=== PATIENT | female | born 1960 | race African-American/Black ===

== ENCOUNTER 2017-02-08 08:08 | Emergency (ER) | payer MEDICARE ==
[~2017-02-08] VITALS: Ht 175.3 cm; Wt 105.0 kg
[2017-02-08 08:10] VITALS: BP 199/92; PULSE 68; RESP 20; TEMP 98; O2SAT 97
--- NOTE | 2017-02-08 08:42 | PD ---
HPI Chief Complaint: Medical Clearance Time Seen by Provider: 08:18 Travel History International Travel<30 days: No Contact w/Intl Traveler<30days: No Traveled to known affect area: No History of Present Illness HPI This is a 56-year-old female with history of renal failure, dialysis dependent, who presents here from [facility] for blood work. The patient was scheduled to have dialysis at the [facility] however it appears that her hepatitis antigen was not sent. According to the manager distribution center at [facility], she needs a negative hepatitis be antigen that is performed within 30 days of her dialysis. I discussed with the manager distribution center, Flavio, who stated that if we were able to obtain this surface antigen result, they could dialyze her today. They initially told her she would need to be dialyzed here as he did not realize it was a turnaround test. Patient denies any headache, shortness of breath, dizziness. PFSH Social History Tobacco Use: No Allergies-Medications (Allergen,Severity, Reaction): Coded Allergies: No Known Allergies (Unverified , 02/08/17) Reported Meds & Prescriptions Reported Meds & Active Scripts Active Reported Lantus Inj (Insulin Glargine) 1,000 Unit/10 Ml Vial 1 Units SQ HS Novolog Inj (Insulin Aspart) 1,000 Unit/10 Ml Vial 0 SQ DIRECTED Sliding Scale as directed. Renvela (Sevelamer Carbonate) 800 Mg Tab 800 Mg PO TID Metoprolol Tartrate 25 Mg Tab 25 Mg PO DAILY Aspirin Low Dose (Aspirin) 81 Mg Chew 81 Mg CHEW DAILY Valsartan 160 Mg Tab 160 Mg PO BID Atorvastatin (Atorvastatin Calcium) 40 Mg Tab 40 Mg PO HS Sensipar (Cinacalcet) 90 Mg Tab 90 Mg PO DAILY Clonidine (Clonidine HCl) 0.3 Mg Tab 0.3 Mg PO TID Diltiazem (Diltiazem HCl) 120 Mg Tab 240 Mg PO DAILY Hydralazine HCl 25 Mg Tablet 50 Mg PO TID Lyrica (Pregabalin) 75 Mg Cap 75 Mg PO BID Review of Systems Except as stated in HPI: all other systems reviewed are Neg General / Constitutional: No: Fever, Chills HENT: No: Headaches, Lightheadedness Cardiovascular: No: Chest Pain or Discomfort, Palpitations Respiratory: No: Cough, Shortness of Breath Gastrointestinal: No: Nausea, Vomiting Musculoskeletal: No: Weakness, Pain Neurologic: No: Weakness, Dizziness, Headache Physical Exam Narrative GENERAL: Well-nourished, well-developed patient, in no acute respiratory distress. SKIN: Focused skin assessment warm/dry. The patient has a AV fistula in the right antecubital that has a palpable thrill. HEAD: Normocephalic/atraumatic. EYES: No scleral icterus. No injection or drainage. NECK: Supple, trachea midline. CARDIOVASCULAR: Regular rate and rhythm without murmurs, gallops, or rubs. RESPIRATORY: Breath sounds equal bilaterally. No accessory muscle use. GASTROINTESTINAL: Abdomen soft, non-tender, nondistended. MUSCULOSKELETAL: No cyanosis, or edema. NEUROLOGICAL: Awake and alert. Cranial nerves II through XII intact. Motor grossly within normal limits. Five out of 5 muscle strength in all muscle groups. Normal speech. Data Data Last Documented VS Vital Signs Date Time Temp Pulse Resp B/P Pulse Ox O2 Delivery O2 Flow Rate FiO2 02/08/17 08:40 72 18 02/08/17 08:10 98.0 199/92 97 Room Air Orders Hepatitis B Surface Ag (02/08/17 08:32) Diet Regular Basic (02/08/17 Lunch) Basic Metabolic Panel (Bmp) (02/08/17 10:51) Labs Laboratory Tests Test 02/08/17 09:10 Sodium Level 136 MEQ/L Potassium Level 4.0 MEQ/L Chloride Level 101 MEQ/L Carbon Dioxide Level 25.5 MEQ/L Anion Gap 10 MEQ/L Blood Urea Nitrogen 44 MG/DL Creatinine 7.91 MG/DL Estimat Glomerular Filtration 6 ML/MIN Rate Random Glucose 229 MG/DL Calcium Level 8.6 MG/DL Hepatitis B Surface Antigen NEGATIVE MDM Medical Decision Making Medical Screen Exam Complete: Yes Emergency Medical Condition: Yes Differential Diagnosis Mental clearance versus fluid overload versus nausea. Narrative Course 56-year-old female presents here from the dialysis center for a hepatitis surface antigen test. The patient apparently is visiting from [place] and had dialysis sent up. Apparently when she arrived at dialysis center, they did not have her surface antigen test. She needed one within 30 days of dialysis. Initially they told the patient she would need to be dialyzed here as they anticipated it would take greater than 24 hours test back. We were able to get the test done and she is scheduled for a dialysis chair at 1:30. She'll be given a cab pass to the dialysis center. I spoke with Flavio, the nurse manager distribution center, who is aware that she will be arriving at 1:30. Diagnosis Primary Impression: renal failure/dialysis dependent Additional Impression: negative hepatitis B surface antigen Disposition: DISCHARGE HOME Condition: Stable Nathan Wild MD Feb 08, 2017 08:42
[2017-02-08] MEDS ORDERED: SENS90TA PO (08:53)
[2017-02-08] MEDS ORDERED: SEVEL800 PO (08:53)
[2017-02-08] MEDS ORDERED: LANTUS2P SQ (08:53)
[2017-02-08] MEDS ORDERED: HYDR-3799 PO (08:53)
[2017-02-08] MEDS ORDERED: METO25TA3 PO (08:53)
[2017-02-08] MEDS ORDERED: LYRI75CA PO (08:53)
[2017-02-08] MEDS ORDERED: CLON0.3T PO (08:53)
[2017-02-08] MEDS ORDERED: ASPI81CH37 CHEW (08:53)
[2017-02-08] MEDS ORDERED: VALS1TAB65 PO (08:53)
[2017-02-08] MEDS ORDERED: DILT120T PO (08:53)
[2017-02-08] MEDS ORDERED: NOVOLOGP2 SQ (08:53)
[2017-02-08] MEDS ORDERED: ATOR40TA16 PO (08:53)
[2017-02-08 11:18] LABS: BICARBONATE 25.5 MEQ/L (21.0-32.0)
== END 2017-02-08 14:05 | disposition home or self-care (01) ==
LOC: NEPC 08:08
DX: N19 Unspecified kidney failure (principal); Z99.2 Dependence on renal dialysis; Z79.4 Long term (current) use of insulin; Z79.899 Other long term (current) drug therapy; Z79.82 Long term (current) use of aspirin
CPT/HCPCS: 80048; 87340; 99283